=== PATIENT | male | born 1985 | race American Indian/Alaskan Native ===

== ENCOUNTER 2017-04-18 22:49 | Emergency (ER) | payer OTHER ==
[2017-04-18 22:54] VITALS: BP 154/100; PULSE 81; RESP 16; TEMP 98.1; O2SAT 100
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
== END 2017-04-18 23:11 | disposition home or self-care (01) ==
LOC: H.ER 22:49
DX: S02.5XXA Fracture of tooth (traumatic), initial encounter for closed fracture (principal); Y04.0XXA Assault by unarmed brawl or fight, initial encounter; Y92.89 Other specified places as the place of occurrence of the external cause

== ENCOUNTER 2017-08-14 22:19 | Emergency (ER) | payer OTHER ==
[2017-08-14 22:31] VITALS: BP 147/87; PULSE 77; RESP 18; TEMP 97.9; O2SAT 99
--- NOTE | 2017-08-14 23:05 | ED PDOC ---
HPI: General Adult Time Seen by Provider: 08/14/17 22:48 Chief Complaint (Nursing): Abnormal Skin Integrity Chief Complaint (Provider): facial cyst History Per: Patient Additional Complaint(s): 32-year-old male presents to emergency department for evaluation of painful cyst to right side of face that he noticed 2 days ago. Patient denies trauma or injury to affected area. He denies fever, chills or active drainage. No meds taken for pain relief. Past Medical History Reviewed: Historical Data, Nursing Documentation, Vital Signs Vital Signs: Last Vital Signs Temp 97.9 F 08/14/17 22:29 Pulse 77 08/14/17 22:29 Resp 18 08/14/17 22:29 BP 147/87 08/14/17 22:29 Pulse Ox 99 08/14/17 23:07 - Medical History PMH: No Chronic Diseases - Family History Family History: States: Diabetes (Maternal) - Living Arrangements Living Arrangements: With Family - Social History Current smoker - smoking cessation education provided: No Alcohol: Social Drugs: Denies - Home Medications Home Medications: Ambulatory Orders Medication Instructions Recorded Ibuprofen [Motrin] 600 mg PO Q6H PRN #20 tab 11/25/15 Cephalexin [Keflex] 500 mg PO Q6 #12 cap 12/31/15 Tramadol HCl [Ultram] 50 mg PO Q6 #15 tab 04/27/16 Cyclobenzaprine [Cyclobenzaprine 10 mg PO TID PRN #15 tab 07/04/16 HCl] Naproxen [Naprosyn] 500 mg PO BID PRN #15 tablet 07/04/16 Clindamycin [Cleocin] 300 mg PO TID #21 cap 08/14/17 Ibuprofen [Motrin] 600 mg PO Q6 PRN #15 tab 08/14/17 - Allergies Allergies/Adverse Reactions: Allergies Allergy/AdvReac Type Severity Reaction Status Date / Time No Known Allergies Allergy Verified 04/27/16 14:44 Review of Systems ROS Statement: Except As Marked, All Systems Reviewed And Found Negative Constitutional: Negative for: Fever ENT: Positive for: Other (cyst on face) Physical Exam - Reviewed Nursing Documentation Reviewed: Yes Vital Signs Reviewed: Yes - Physical Exam Appears: Positive for: Well, Non-toxic, No Acute Distress Skin: Negative for: Rash Eye Exam: Positive for: Normal appearance ENT: Positive for: Other (2 cm indurated, erythematous cyst noted to right mandibular region, no central pointing, no active drainage, minimally tender to palpation, no erythematous streaking) Neurologic/Psych: Positive for: Alert, Oriented - ECG O2 Sat by Pulse Oximetry: 99 Pulse Ox Interpretation: Normal Medical Decision Making Medical Decision Making: Impression: Facial abscess Plan: PO tylenol given in ED Rx clindamycin and motrin. Advised warm compresses to affected are. Patient was referred to clinic for follow up. Disposition - Clinical Impression Clinical Impression: Abscess - Patient ED Disposition Is Patient to be Admitted: No Counseled Patient/Family Regarding: Diagnosis, Need For Followup, Rx Given - Disposition Referrals: [facility] [Outside] Disposition: Routine/Home Disposition Time: 23:06 Condition: STABLE Additional Instructions: Apply warm compresses with Epsom salts to affected areas off as often as possible. Take prescription meds as directed. Follow-up with clinic in 2-3 days. Prescriptions: Clindamycin [Cleocin] 300 mg PO TID #21 cap Ibuprofen [Motrin] 600 mg PO Q6 PRN #15 tab PRN Reason: Pain, Moderate (4-7) Instructions: Abscess (ED) Forms: [employer] (Indonesian)
== END 2017-08-14 23:52 | disposition home or self-care (01) ==
LOC: H.ER 22:19
DX: L02.01 Cutaneous abscess of face (principal)

== ENCOUNTER 2017-09-30 22:48 | Emergency (ER) | payer OTHER ==
[2017-09-30 22:59] VITALS: BP 134/76; PULSE 71; RESP 16; TEMP 98.2; O2SAT 97
[2017-09-30] MEDS ORDERED: Sodium Chloride 0.9% 1,000 ML IV STA (23:14)
[2017-09-30 23:31] LABS: BASO % 0.4 % (0.0-2.0); EOS % 0.3 % (0.0-4.0); HEMOGLOBIN 16.2 g/dL (12.0-18.0); LYMPH # 1.8 K/uL (1.0-4.3); LYMPH % 16.3 % (20.0-40.0); MEAN CELL VOLUME 88.4 fl (80.0-94.0); MEAN CORPUSCULAR HEMOGLOBIN 28.8 pg (27.0-31.0); MEAN CORPUSCULAR HGB CONC 32.6 g/dL (33.0-37.0); MONO # 0.9 K/uL (0.0-0.8); MONO % 7.9 % (0.0-10.0); NEUT # 8.1 K/uL (1.8-7.0); NEUT % 75.1 % (50.0-75.0); NRBC % 0.1 % (0.0-0.0); RBC 5.62 Mil/uL (4.40-5.90); RED CELL DISTRIBUTION WIDTH 15.3 % (11.5-14.5); WHITE BLOOD COUNT 10.8 K/uL (4.8-10.8)
[2017-09-30 23:47] LABS: ALT/SGPT 56 U/L (21-72); AST/SGOT 30 U/L (17-59); BLOOD UREA NITROGEN 10 mg/dl (9-20); CALCIUM 9.3 mg/dL (8.4-10.2); GFR AFRICAN-AMERICAN > 60; GFR NON-AFRICAN AMERICAN > 60; LIPASE 48 U/L (23-300)
[2017-09-30 23:49] LABS: ALB/GLOB RATIO 1.4 (1.0-2.1)
--- NOTE | 2017-10-01 00:26 | ED PDOC ---
HPI: Abdomen Time Seen by Provider: 09/30/17 22:50 Chief Complaint (Nursing): GI Problem Chief Complaint (Provider): GI Problem History Per: Patient, Family History/Exam Limitations: no limitations Onset/Duration Of Symptoms: Days (x1) Current Symptoms Are (Timing): Still Present Additional Complaint(s): Dana Hua is a 32 year old male with no significant past medical history, who presents to the ED due to vomiting x1 day. Patient states he vomited 5 or 6 times this morning. Reports noticing streaks of blood in his vomit. Denies fever , diarrhea, and abdominal pain. Patient states he drinks occasionally and had his most recent drink last night. Also admits to smoking a few cigarettes per day. Patient is here with parents. PMD: None Past Medical History Reviewed: Historical Data, Nursing Documentation, Vital Signs Vital Signs: Last Vital Signs Temp 98.2 F 09/30/17 22:56 Pulse 71 09/30/17 22:56 Resp 16 09/30/17 22:56 BP 134/76 09/30/17 22:56 Pulse Ox 97 10/01/17 01:04 - Medical History PMH: No Chronic Diseases - Surgical History Surgical History: No Surg Hx - Family History Family History: States: Diabetes (Maternal) - Social History Current smoker - smoking cessation education provided: Yes Alcohol: Occasional (last drink last night) Drugs: Denies - Home Medications Home Medications: Ambulatory Orders Medication Instructions Recorded Ibuprofen [Motrin] 600 mg PO Q6H PRN #20 tab 11/25/15 Cephalexin [Keflex] 500 mg PO Q6 #12 cap 12/31/15 Tramadol HCl [Ultram] 50 mg PO Q6 #15 tab 04/27/16 Cyclobenzaprine [Cyclobenzaprine 10 mg PO TID PRN #15 tab 07/04/16 HCl] Naproxen [Naprosyn] 500 mg PO BID PRN #15 tablet 07/04/16 Clindamycin [Cleocin] 300 mg PO TID #21 cap 08/14/17 Ibuprofen [Motrin] 600 mg PO Q6 PRN #15 tab 08/14/17 - Allergies Allergies/Adverse Reactions: Allergies Allergy/AdvReac Type Severity Reaction Status Date / Time No Known Allergies Allergy Verified 04/27/16 14:44 Review of Systems ROS Statement: Except As Marked, All Systems Reviewed And Found Negative Constitutional: Negative for: Fever Gastrointestinal: Positive for: Vomiting (x5 or 6 with streaks of blood). Negative for: Abdominal Pain, Diarrhea Physical Exam - Reviewed Nursing Documentation Reviewed: Yes Vital Signs Reviewed: Yes - Physical Exam Appears: Positive for: Well, Non-toxic, No Acute Distress Head Exam: Positive for: ATRAUMATIC, NORMAL INSPECTION, NORMOCEPHALIC Skin: Positive for: Normal Color, Warm, Dry. Negative for: Rash Eye Exam: Positive for: EOMI, Normal appearance, PERRL ENT: Positive for: Normal ENT Inspection Neck: Positive for: Normal, Painless ROM, Supple Cardiovascular/Chest: Positive for: Regular Rate, Rhythm. Negative for: Murmur Respiratory: Positive for: Normal Breath Sounds. Negative for: Respiratory Distress Gastrointestinal/Abdominal: Positive for: Normal Exam, Bowel Sounds, Soft. Negative for: Tenderness Back: Positive for: Normal Inspection. Negative for: L CVA Tenderness, R CVA Tenderness, Vertebral Tenderness Extremity: Positive for: Normal ROM. Negative for: Pedal Edema, Deformity Neurologic/Psych: Positive for: Alert, Oriented (x3). Negative for: Motor/ Sensory Deficits - Laboratory Results Result Diagrams: 09/30/17 23:29 09/30/17 23:29 - ECG O2 Sat by Pulse Oximetry: 97 (RA) Pulse Ox Interpretation: Normal Medical Decision Making Medical Decision Making: Time: 23:09 vomiting, not currnetly Plan: --CMP --Lipase --CBC w/ differential --Sodium Chloride 0.8% 1,000 mL --Zofran 4 mg IV --Reevaluation Time: 00:45 --All labs were reviewed and showed no acute abnormalities. pt tolerated po. --Upon provider reevaluation patient is feeling better, is medically stable, and requires no further treatment in the ED at this time. Counseling was provided and all questions were answered regarding diagnosis and need for follow up with PMD. There is agreement to discharge plan. Return if symptoms persist or worsen. Scribe Attestation: Documented by Juan M Pedro acting as a scribe for Kerrie Valdivia MD. MD Patino Attestation: All medical record entries made by the Scribe were at my direction and personally dictated by me. I have reviewed the chart and agree that the record accurately reflects my personal performance of the history, physical exam, medical decision making, and the department course for this patient. I have also personally directed, reviewed, and agree with the discharge instructions and disposition. Disposition - Clinical Impression Clinical Impression: Vomiting - Patient ED Disposition Is Patient to be Admitted: No Counseled Patient/Family Regarding: Studies Performed, Diagnosis, Need For Followup - Disposition Referrals: [facility] [Outside] [facility] [Outside] Disposition: Routine/Home Disposition Time: 00:30 Condition: IMPROVED Additional Instructions: follow up with your primary doctor in 1-2 days return to the ED with any worsening or concerning symptoms Instructions: Acute Nausea and Vomiting (ED) Forms: [employer] (Indian)
== END 2017-10-01 01:13 | disposition home or self-care (01) ==
LOC: H.ER 22:48
DX: R11.10 Vomiting, unspecified (principal)
CPT/HCPCS: 80053; 83690; 85025; 96360; 99283; J2405; J7040

== ENCOUNTER 2017-11-27 18:39 | Emergency (ER) | payer OTHER ==
[2017-11-27 18:44] VITALS: BP 140/88; PULSE 98; RESP 18; TEMP 98.3; O2SAT 98
[2017-11-27] MEDS ORDERED: Albuterol-Ipratrop 3 mg / 0.5 (3 ml) UD ONE ×2 (18:53→19:48)
[2017-11-27] MEDS ORDERED: Albuterol-Ipratrop 3 mg / 0.5 (3 ml) UD INH STA (18:59)
--- NOTE | 2017-11-27 19:01 | ED PDOC ---
HPI: SOB/CHF/COPD Time Seen by Provider: 11/27/17 18:53 Chief Complaint (Nursing): Shortness Of Breath Chief Complaint (Provider): asthma exaceration History Per: Patient, EMS Additional Complaint(s): Dana is a 32 y/o male with a history of asthma who presents to the ED complaining of shortness of breath and wheezing. Patient states he ran out of his inhaler yesterday. He also complains of a dry cough, and states he had chest pain when he arrived which has now resolved. Patient denies fever or chills. PMD: None Past Medical History Reviewed: Historical Data, Nursing Documentation, Vital Signs Vital Signs: Last Vital Signs Temp 98.3 F 11/27/17 18:42 Pulse 98 H 11/27/17 18:42 Resp 18 11/27/17 18:42 BP 140/88 11/27/17 18:42 Pulse Ox 98 11/27/17 19:03 - Medical History PMH: Asthma - Family History Family History: States: Diabetes (Maternal) - Living Arrangements Living Arrangements: With Family - Social History Current smoker - smoking cessation education provided: No Alcohol: None Drugs: Denies - Home Medications Home Medications: Ambulatory Orders Medication Instructions Recorded Ibuprofen [Motrin] 600 mg PO Q6H PRN #20 tab 11/25/15 Cephalexin [Keflex] 500 mg PO Q6 #12 cap 12/31/15 Tramadol HCl [Ultram] 50 mg PO Q6 #15 tab 04/27/16 Cyclobenzaprine [Cyclobenzaprine 10 mg PO TID PRN #15 tab 07/04/16 HCl] Naproxen [Naprosyn] 500 mg PO BID PRN #15 tablet 07/04/16 Clindamycin [Cleocin] 300 mg PO TID #21 cap 08/14/17 Ibuprofen [Motrin] 600 mg PO Q6 PRN #15 tab 08/14/17 Albuterol HFA [Ventolin HFA 90 1 puff IH ASDIR #1 unit 11/27/17 mcg/actuation (8 g)] Ibuprofen [Motrin Tab] 800 mg PO Q8 PRN #20 tab 11/27/17 Prednisone 50 mg PO DAILY #5 tablet 11/27/17 - Allergies Allergies/Adverse Reactions: Allergies Allergy/AdvReac Type Severity Reaction Status Date / Time No Known Allergies Allergy Verified 04/27/16 14:44 Wells Criteria for PE - Wells Criteria for Pulmonary Embolism Clinical Signs and Symptoms of DVT: No P.E is #1 Diagnosis, or Equally Likely: No Heart Rate >100: No Immobilization at least 3 days;Surgery previous 4 weeks: No Previous, objectively diagnosed PE or DVT: No Hemoptysis: No Malignancy w/treatment within 6 months, or palliative: No Total Score: 0 Review of Systems ROS Statement: Except As Marked, All Systems Reviewed And Found Negative Constitutional: Negative for: Fever, Chills Cardiovascular: Positive for: Chest Pain (resolved) Respiratory: Positive for: Cough (dry), Shortness of Breath, Wheezing Gastrointestinal: Negative for: Nausea, Vomiting Physical Exam - Reviewed Nursing Documentation Reviewed: Yes Vital Signs Reviewed: Yes - Physical Exam Appears: Positive for: Well, Non-toxic, No Acute Distress Head Exam: Positive for: ATRAUMATIC Skin: Positive for: Normal Color, Warm, Dry Cardiovascular/Chest: Positive for: Regular Rate, Rhythm. Negative for: Murmur Respiratory: Positive for: Wheezing (b/l inspiratory and expiratory) Extremity: Positive for: Normal ROM Neurologic/Psych: Positive for: Alert, Oriented. Negative for: Motor/Sensory Deficits - ECG Interpretation Of ECG: NSR, no acute finding, reviewed by PA and ED attending O2 Sat by Pulse Oximetry: 98 (RA) Pulse Ox Interpretation: Normal - Other Rad CXR X-Ray: Interpreted by Me, Viewed By Me X-Ray Interpretation: no acute finding Nebulizer Treatments/Peak Flow - Duonebs Number of Bronchodilator Doses given?: 3 (duoneb) - Pre/Post Peak Flow Pre Treatment Peak Flow: 200 Post treatment Peak Flow: 300 - Steroid Treatment Steroid: IV (IM solumedrol) - Clinical Response Clinical Response: Improved Medical Decision Making Medical Decision Making: Time: 18:53 Initial Impression: 32 y/o male with asthma exacerbation Initial Plan: --Duoneb x 3 --125 IM Solu-Medrol --EKG --Chest XR EKG: Normal CXR: no acute finding Patient is clinically improved after treatments. Rx prednisone and ventolin inhaler given. Patient was referred to clinic for follow up. Scribe Attestation: Documented by Samir Win, acting as a scribe for Christel Beard PA-C Provider Scribe Attestation: All medical record entries made by the Scribe were at my direction and personally dictated by me. I have reviewed the chart and agree that the record accurately reflects my personal performance of the history, physical exam, medical decision making, and the department course for this patient. I have also personally directed, reviewed, and agree with the discharge instructions and disposition. Disposition - Clinical Impression Clinical Impression: Asthma exacerbation - Patient ED Disposition Is Patient to be Admitted: No Counseled Patient/Family Regarding: Studies Performed, Diagnosis, Need For Followup, Rx Given - Disposition Referrals: [facility] [Outside] Disposition: Routine/Home Disposition Time: 20:07 Condition: IMPROVED Additional Instructions: Take meds as directed. Follow-up with clinic in 2-3 days. Prescriptions: Albuterol HFA [Ventolin HFA 90 mcg/actuation (8 g)] 1 puff IH ASDIR #1 unit Ibuprofen [Motrin Tab] 800 mg PO Q8 PRN #20 tab PRN Reason: Pain, Moderate (4-7) Prednisone 50 mg PO DAILY #5 tablet Instructions: Asthma in Adults Forms: [employer] (Micronesian)
[2017-11-27] MEDS: Albuterol-Ipratrop 3 mg / 0.5 (3 ml) UD INH STA (19:50)
--- NOTE | 2017-11-28 09:25 | RAD ---
HISTORY: cough COMPARISON: 07/04/2016 TECHNIQUE: Chest PA and lateral FINDINGS: LUNGS: No active pulmonary disease. PLEURA: No significant pleural effusion identified. No pneumothorax apparent. CARDIOVASCULAR: Normal. OSSEOUS STRUCTURES: No significant abnormalities. VISUALIZED UPPER ABDOMEN: Normal. OTHER FINDINGS: None. IMPRESSION: No active disease.
== END 2017-11-27 20:19 | disposition home or self-care (01) ==
LOC: H.ER 18:39
DX: J45.901 Unspecified asthma with (acute) exacerbation (principal)
CPT/HCPCS: 71046; 94640; 96372; 99281; J2930

== ENCOUNTER 2017-11-28 20:37 | Emergency (ER) | payer OTHER ==
[2017-11-28 20:52] VITALS: BP 168/95; PULSE 117; RESP 16; TEMP 98; O2SAT 97
[2017-11-28] MEDS ORDERED: Albuterol 0.083% Inhal Sol (2.5 mg/3 mL) UD INH STA (20:54)
[2017-11-28] MEDS ORDERED: Albuterol-Ipratrop 3 mg / 0.5 (3 ml) UD INH STA (20:55)
[2017-11-28] MEDS ORDERED: Albuterol-Ipratrop 3 mg / 0.5 (3 ml) UD ONE (20:58)
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
--- NOTE | 2017-11-29 09:00 | RAD ---
HISTORY: cough COMPARISON: Chest radiograph dated 11/27/2017. TECHNIQUE: Chest PA and lateral FINDINGS: LUNGS: No active pulmonary disease. PLEURA: No significant pleural effusion identified. No pneumothorax apparent. CARDIOVASCULAR: Normal. OSSEOUS STRUCTURES: No significant abnormalities. VISUALIZED UPPER ABDOMEN: Normal. OTHER FINDINGS: None. IMPRESSION: No active disease.
== END 2017-11-28 23:31 | disposition short-term general hospital (02) ==
LOC: H.ER 20:37
DX: S02.2XXA Fracture of nasal bones, initial encounter for closed fracture (principal); S09.90XA Unspecified injury of head, initial encounter; Y04.0XXA Assault by unarmed brawl or fight, initial encounter; Y92.89 Other specified places as the place of occurrence of the external cause; J45.901 Unspecified asthma with (acute) exacerbation

== ENCOUNTER 2018-05-09 16:46 | Emergency (ER) | payer MEDICAID, OTHER ==
[2018-05-09 17:16] VITALS: BP 118/77; PULSE 71; RESP 18; TEMP 98.5; O2SAT 99
--- NOTE | 2018-05-09 18:04 | ED PDOC ---
Syncope/Near Syncope/Dizziness Time Seen by Provider: 05/09/18 17:49 Chief Complaint (Nursing): Dizziness/Lightheaded Chief Complaint (Provider): SORE THROAT History Per: Patient (33 Y/O MALE HERE WITH COMPLAINT OF SORE THROAT/RUNNY NOSE X 2 DAYS ASSOCIATED WITH EPISODE OF VOMITING. DENIES ANY FEVERS/CHILLS/DIARRHEA /FEVERS/CHILLS.) Past Medical History Reviewed: Historical Data, Nursing Documentation, Vital Signs Vital Signs: Last Vital Signs Temp 98.5 F 05/09/18 17:12 Pulse 71 05/09/18 17:12 Resp 18 05/09/18 17:12 BP 118/77 05/09/18 17:12 Pulse Ox 99 05/09/18 17:12 - Medical History PMH: Asthma Denies: Chronic Kidney Disease - Family History Family History: States: Diabetes (Maternal) - Home Medications Home Medications: Ambulatory Orders Medication Instructions Recorded Ibuprofen [Motrin] 600 mg PO Q6H PRN #20 tab 11/25/15 Cephalexin [Keflex] 500 mg PO Q6 #12 cap 12/31/15 Tramadol HCl [Ultram] 50 mg PO Q6 #15 tab 04/27/16 Cyclobenzaprine [Cyclobenzaprine 10 mg PO TID PRN #15 tab 07/04/16 HCl] Naproxen [Naprosyn] 500 mg PO BID PRN #15 tablet 07/04/16 Clindamycin [Cleocin] 300 mg PO TID #21 cap 08/14/17 Ibuprofen [Motrin] 600 mg PO Q6 PRN #15 tab 08/14/17 Albuterol HFA [Ventolin HFA 90 1 puff IH ASDIR #1 unit 11/27/17 mcg/actuation (8 g)] Ibuprofen [Motrin Tab] 800 mg PO Q8 PRN #20 tab 11/27/17 Prednisone 50 mg PO DAILY #5 tablet 11/27/17 Ibuprofen [Motrin] 600 mg PO Q8 PRN #15 tab 05/09/18 - Allergies Allergies/Adverse Reactions: Allergies Allergy/AdvReac Type Severity Reaction Status Date / Time No Known Allergies Allergy Verified 04/27/16 14:44 Review of Systems ROS Statement: Except As Marked, All Systems Reviewed And Found Negative ENT: Positive for: Nose Congestion Gastrointestinal: Positive for: Vomiting Physical Exam - Reviewed Nursing Documentation Reviewed: Yes Vital Signs Reviewed: Yes - Physical Exam Appears: Positive for: Well, Non-toxic, No Acute Distress Head Exam: Positive for: ATRAUMATIC, NORMAL INSPECTION, NORMOCEPHALIC Skin: Positive for: Normal Color, Warm, DRY Eye Exam: Positive for: EOMI, Normal appearance, PERRL ENT: Positive for: Normal ENT Inspection Neck: Positive for: Normal, Painless ROM Cardiovascular/Chest: Positive for: Regular Rate, Rhythm Respiratory: Positive for: CNT, Normal Breath Sounds Gastrointestinal/Abdominal: Positive for: Normal Exam, Soft Back: Positive for: Normal Inspection Extremity: Positive for: Normal ROM Neurologic/Psych: Positive for: Alert, Oriented - ECG O2 Sat by Pulse Oximetry: 99 - Progress ED Course And Treament: rapid strep neg rapid flu a/b neg toradol 30 mg IM zofran 4 mg odt Disposition - Clinical Impression Clinical Impression: Viral pharyngitis - Patient ED Disposition Is Patient to be Admitted: No - Disposition Disposition: Routine/Home (n) Disposition Time: 19:42 Condition: FAIR Prescriptions: Ibuprofen [Motrin] 600 mg PO Q8 PRN #15 tab PRN Reason: Pain, Moderate (4-7) Instructions: Viral Pharyngitis Forms: [facility] School/Work Excuse
== END 2018-05-09 20:00 | disposition home or self-care (01) ==
LOC: H.ER 16:46
DX: J02.9 Acute pharyngitis, unspecified (principal)
CPT/HCPCS: 82948; 87070; 87430; 87804; 96372; 99285; J1885

== ENCOUNTER 2019-02-09 15:26 | Emergency (ER) | payer MEDICAID ==
[2019-02-09 15:37] VITALS: O2SAT 97
[2019-02-09] MEDS ORDERED: Albuterol-Ipratrop 3 mg / 0.5 (3 ml) UD INH STA (16:47)
--- NOTE | 2019-02-09 17:01 | ED PDOC ---
HPI: Influenza Time Seen by Provider: 02/09/19 15:57 Chief Complaint: Cough, Cold, Congestion Chief Complaint (Provider): cough, cold, congestion History Per: Patient Exam Limitations: no limitations Onset/Duration Of Symptoms: Days (2x) Symptoms include: sore throat, nasal congestion, other (yellow phlegm) Sick Contacts (Context): None Additional complaint(s):: 33 year old male with a past medical history of asthma presents to the ED for an evaluation of a cough productive of yellow phlegm persistent for 2x days. Patient reports having associated nasal congestion and throat pain. Patient reports having 1x episode of vomiting from coughing. Patient denies taking anything for his cough because he has drug court and is unable to take anything before that. PAtient denies having fevers, ear pain, or sick contacts. PMD: None provided. Past Medical History Reviewed: Historical Data, Nursing Documentation, Vital Signs Vital Signs: Last Vital Signs Temp 98.9 F 02/09/19 15:34 Pulse 84 02/09/19 15:34 Resp 16 02/09/19 15:34 BP 125/67 02/09/19 15:34 Pulse Ox 97 02/09/19 15:34 SHERRI Report Viewed: Yes Primary Care Provider: FAMILY PROVIDER,NO - Medical History PMH: Asthma Denies: Chronic Kidney Disease - Family History Family History: States: Diabetes (Maternal) - Home Medications Home Medications: Ambulatory Orders Medication Instructions Recorded Ibuprofen [Motrin] 600 mg PO Q6H PRN #20 tab 11/25/15 Cephalexin [Keflex] 500 mg PO Q6 #12 cap 12/31/15 Tramadol HCl [Ultram] 50 mg PO Q6 #15 tab 04/27/16 Cyclobenzaprine [Cyclobenzaprine 10 mg PO TID PRN #15 tab 07/04/16 HCl] Naproxen [Naprosyn] 500 mg PO BID PRN #15 tablet 07/04/16 Clindamycin [Cleocin] 300 mg PO TID #21 cap 08/14/17 Ibuprofen [Motrin] 600 mg PO Q6 PRN #15 tab 08/14/17 Albuterol HFA [Ventolin HFA 90 1 puff IH ASDIR #1 unit 11/27/17 mcg/actuation (8 g)] Ibuprofen [Motrin Tab] 800 mg PO Q8 PRN #20 tab 11/27/17 Prednisone 50 mg PO DAILY #5 tablet 11/27/17 Ibuprofen [Motrin] 600 mg PO Q8 PRN #15 tab 05/09/18 Albuterol 0.083% [Albuterol 0.083% 2.5 mg IH Q4H PRN #30 neb 02/09/19 Inhal Ni (2.5 mg/3 ml) UD] Albuterol HFA [Ventolin HFA 90 1 puff IH Q4H PRN #1 inhaler 02/09/19 mcg/actuation (8 g)] Benzonatate [Tessalon Perles] 100 mg PO TID #30 sgl 02/09/19 Prednisone [Deltasone] 60 mg PO DAILY #12 tablet 02/09/19 - Allergies Allergies/Adverse Reactions: Allergies Allergy/AdvReac Type Severity Reaction Status Date / Time No Known Allergies Allergy Verified 02/09/19 15:34 Review of Systems ROS Statement: Except As Marked, All Systems Reviewed And Found Negative Constitutional: Negative for: Fever ENT: Positive for: Nose Congestion, Throat Pain Respiratory: Positive for: Cough (productive of yellow phlegm) Gastrointestinal: Positive for: Vomiting (1x episode from coughing) Physical Exam - Reviewed Nursing Documentation Reviewed: Yes Vital Signs Reviewed: Yes - Physical Exam Appears: Positive for: Well, Non-toxic, No Acute Distress Head Exam: Positive for: ATRAUMATIC, NORMOCEPHALIC Skin: Positive for: Normal Color, Warm, Dry Eye Exam: Positive for: Normal appearance ENT: Positive for: Pharyngeal Erythema, Other (right ear: impacted with cerumen. left ear: fluid behind ears.). Negative for: Tonsillar Exudate, Tonsillar Swelling Respiratory: Positive for: Wheezing (expiratory wheeze bilaterally. ), Other (patient coughing in ED during examination with deep inspiration.) Neurological/Psych: Positive for: Awake, Alert, Oriented (3x) Medical Decision Making Medical Decision Makin:57 Initial impression: 33 year old male with a cough and congestion. Initial plan: * XRay chest 2 views * 3x duoneb 3 ml INH * prednisone tab 60 mg po * peak flow pre post treatment * reevaluation 18:39 Vitals stable: BP: 136/79 o2 sat: 97% HR: 97 beats/min Temp: 98.7 Resp: 20 Upon provider reevaluation patient's wheezing has resolved, but coughing continues. Patient is medically stable, and requires no further treatment in the ED at this time. Patient will be discharged home with Rx for an albuterol pump and solution (as he has a machine at home), tessalon perles, and prednisone. Counseling was provided and all questions were answered regarding diagnosis of acute bronchitis. There is agreement to discharge plan. Return if symptoms persist or worsen. ScribeAttestation: Documented byOpal Orosco, acting as a scribe for Rutahnn Eugene APN. Provider ScribeAttestation: All medical record entries made by the Scribe were at my direction and personally dictated by me. I have reviewed the chart and agree that the record accurately reflects my personal performance of the history, physical exam, medical decision making, and the department course for this patient. I have also personally directed, reviewed, and agree with the discharge instructions and disposition. - ECG O2 Sat by Pulse Oximetry: 97 (RA) Pulse Ox Interpretation: Normal Disposition - Clinical Impression Clinical Impression: Acute bronchitis - Patient ED Disposition Is Patient to be Admitted: No Counseled Patient/Family Regarding: Diagnosis, Need For Followup, Rx Given - Disposition Referrals: [facility] [Outside] Disposition: Routine/Home Disposition Time: 18:39 Condition: IMPROVED Prescriptions: Albuterol 0.083% [Albuterol 0.083% Inhal Ni (2.5 mg/3 ml) UD] 2.5 mg IH Q4H PRN #30 neb PRN Reason: Wheezing Albuterol HFA [Ventolin HFA 90 mcg/actuation (8 g)] 1 puff IH Q4H PRN #1 inhaler PRN Reason: Wheezing Benzonatate [Tessalon Perles] 100 mg PO TID #30 sgl Prednisone [Deltasone] 60 mg PO DAILY #12 tablet Instructions: Acute Bronchitis, Adult (DC) Forms: [employer] (Wallisian) Print Language: GABONESE - POA Present On Arrival: None
[2019-02-09] MEDS ORDERED: Albuterol-Ipratrop 3 mg / 0.5 (3 ml) UD ONE (17:41)
--- NOTE | 2019-02-09 18:55 | RAD ---
Date of service: 02/09/2019 HISTORY: cough/wheezing COMPARISON: 11/28/2017 TECHNIQUE: Chest PA and lateral views FINDINGS: LUNGS: No active pulmonary disease. PLEURA: No significant pleural effusion identified. No pneumothorax apparent. CARDIOVASCULAR: No aortic atherosclerotic calcification present. Normal cardiac size. No pulmonary vascular congestion. OSSEOUS STRUCTURES: No significant abnormalities. VISUALIZED UPPER ABDOMEN: Normal. OTHER FINDINGS: None. IMPRESSION: No active disease. No significant interval change compared to the prior examination(s).
[2019-02-09 19:06] VITALS: BP 136/79; PULSE 97; RESP 20; TEMP 98.7
== END 2019-02-09 18:42 | disposition home or self-care (01) ==
LOC: H.ER 15:26
DX: J40 Bronchitis, not specified as acute or chronic (principal)